=== PATIENT | male | born 1965 | race Caucasian/White ===

== ENCOUNTER 2020-03-11 08:18 | Outpatient (REF) | payer OTHER, SELFPAY | END 2020-03-11 08:19 | disposition home or self-care (01) | LOC: HO.LAB 08:18 | PROVIDERS: Visit Provider Internal Medicine | DX: Z20.822 Contact with and (suspected) exposure to COVID-19 (principal) | CPT/HCPCS: 36415; C9803; U0003; U0005 ==

== ENCOUNTER 2022-04-16 06:48 | Day surgery (SDC) | payer OTHER, SELFPAY ==
[2022-04-13 11:55] VITALS: BMI 24.3
--- NOTE | 2022-04-15 13:09 | HO.ANESPROP2 ---
Documented by User: Paula Rosenthal NP 04/15/22 13:09 HPI - Anesthesia Eval Consult details Narrative: 57yo M for Colonoscopy PMFSH Active Problems Active Problems: All Active Problems (Updated 11/03/21 @ 08:37 by Evi Olivo MD) Annual physical exam (Acute) Colonoscopy refused (Acute) Positive colorectal cancer screening using Cologuard test (Acute) Screening for colon cancer (Acute) Marijuana smoker (Acute) Obstructive sleep apnea (Acute) Genital herpes (Acute) Erectile dysfunction (Acute) GERD without esophagitis (Acute) Pure hypercholesterolemia (Acute) Past Medical History Medical History Erectile dysfunction Genital herpes GERD without esophagitis Marijuana smoker Obstructive sleep apnea Pure hypercholesterolemia Family History Family History Other Family history non-contributory Surgical History Surgical History History of esophagogastroduodenoscopy (EGD) Hx of appendectomy Social History Social History Housing: Apartment Alcohol intake: former Patient Tobacco Use Status: Never used Tobacco Second Hand Smoke Exposure: Yes Are you DNR?: No Advance Directives: No Advance Directives Information Provided: Yes Nutrition Risks: No Nutritional Risk service: No Current occupational status: employed Cognitive needs: No Hearing needs: No Vision needs: Yes Meds Allergies Allergy/AdvReac Type Severity Reaction Status Date / Time Sulfa (Sulfonamide Allergy Unknown RASH Verified 11/03/21 07:58 Antibiotics) [SULFA (SULFONAMIDE ANTIBIOTICS)] Exam Exam Date and Time: April 15, 2022 1309 Height,Weight and Vital Signs: Height 5 ft 10 in Weight 77.111 kg Assessment and Plan Assessment Anesthesia Assessment: Chart Reviewed Documented by User: Patricia Fraser MD 04/16/22 07:18 PMFSH Past Medical History Medical History Erectile dysfunction Genital herpes GERD without esophagitis Marijuana smoker Obstructive sleep apnea Pure hypercholesterolemia Functional capacity: independent ambulation Family History Family History Other Family history non-contributory Surgical History Surgical History History of esophagogastroduodenoscopy (EGD) Hx of appendectomy History of Problems with Anesthesia: No Social History Social History Housing: Apartment Alcohol intake: former Patient Tobacco Use Status: Never used Tobacco Second Hand Smoke Exposure: Yes Are you DNR?: No Advance Directives: No Advance Directives Information Provided: Yes Nutrition Risks: No Nutritional Risk service: No Current occupational status: employed Cognitive needs: No Hearing needs: No Vision needs: Yes Meds Allergies Allergy/AdvReac Type Severity Reaction Status Date / Time Sulfa (Sulfonamide Allergy Unknown RASH Verified 11/03/21 07:58 Antibiotics) [SULFA (SULFONAMIDE ANTIBIOTICS)] Exam Airway Mallampati Class: III TM Dist: >3cm Neck ROM: Full Heart: RRR Lungs: CTA Assessment and Plan Final Anesthetic Review History of Problems with Anesthesia: No NPO: Yes ASA Class: II Final Preanesthetic Review: No Changes in Pt Med Stat, Meds/Allgs Chart Reviewed, Consent Obtained/Reviewed and Anes Risks/Benef Reviewed Patient Risk: Low Procedure Risk: Low Anesthetic Plan Anesthetic Plan: MAC: Disposition: Standard PACU
[2022-04-16 06:59] VITALS: BP 139/83; PULSE 77; RESP 18; TEMP 36.1; O2SAT 97
--- NOTE | 2022-04-16 07:19 | ECG_ITS ---
Test Reason : ?rhythm Blood Pressure : / mmHG Vent. Rate : 073 BPM Atrial Rate : 073 BPM P-R Int : 146 ms QRS Dur : 134 ms QT Int : 434 ms P-R-T Axes : 066 -68 023 degrees QTc Int : 478 ms Normal sinus rhythm Left axis deviation Right bundle branch block Abnormal ECG No previous ECGs available Referred By: Patricia Fraser Electronically Signed By:MILES DUFF
[2022-04-16] MEDS: Lactated Ringers 1,000 ML 100 ML IVCONT (07:24)
--- NOTE | 2022-04-16 07:38 | MHC.SHP ---
Pre-Procedural Eval Section A Date of Service: 04/16/22 Section B Chief Complaint: Positive cologuard Details of Present Illness: PMH: Erectile dysfunction Genital herpes GERD without esophagitis Marijuana smoker Obstructive sleep apnea Pure hypercholesterolemia Relevant Family History (Specify if Yes): No Present Medications: see Short Stay Collaborative assessment History of Previous Operations: No relevant previous surgery Allergies: Allergies Allergy/AdvReac Type Severity Reaction Status Date / Time Sulfa (Sulfonamide Allergy Unknown RASH Verified 11/03/21 07:58 Antibiotics) [SULFA (SULFONAMIDE ANTIBIOTICS)] Review of Systems Review of Systems Comment: Ten point ROS negative Exam Exam Comment: Gen appear: No acute distress HEENT: no icterus Chest: No overt resp distress Abd: soft, nontender, nondistended Psych: Stable affect, answering questions appropriately Neuro: A/Ox3 noted to move all extremities spontaneously Ext: no peripheral edema Plan Diagnosis/Plan: Unchanged I have reviewed the history and physical and performed a pertinent physical examination on my patient. No changes have occurred unless specified. Time Spent With Patient Time: Total time managing care of this patient today ____ minutes.
--- NOTE | 2022-04-16 08:10 | P.OP_ITS ---
Operative Note Operative Note Date of Service: 04/16/22 Narrative: Procedure: Colonoscopy Indication: + cologuard test Endoscopist: Evi Olivo MD Anesthesia Provider: Dr Patricia Castro Anesthesia type: MAC Instrument: Olympus [id number]-[id number] Consent: Indication, risks vs benefits, and alternatives were discussed with the patient who gave written informed consent to proceed. EKG, pulse, pulse oximetry and blood pressure were monitored throughout the procedure. Please see anesthesia flowsheet. Procedure: The patient was brought to the procedure room and placed in the left lateral decubitus position. IV medications were administered by the anesthesia provider in attendance. A digital rectal exam was performed which was normal. A distal attachment cap was affixed to the tip of the scope and the colonoscope was then inserted through the anus and advanced through the colon to the cecum at 75 cm,and terminal ileum. Appendiceal orifice and ileocecal valve were identified. Mucosa was carefully examined under high definition white light as the instrument was slowly withdrawn in a retrograde panoramic fashion. Retroflexion was performed in ascending colon and rectum. The procedure was not difficult. There were no immediate obvious complications. The quality of the prep was BBPS: 2+3+3 = adequate Withdrawal time 15 minutes. Limitations: No limitations. Findings: Mucosa: Normal to cecum and terminal ileum. Protruding lesions: * 1 sessile polyp of size 4 mm in sigmoid colon. Cold snare polypectomy was performed. The polyp was completely removed and retrieved. * 1pedunculated polyp of size 20 mm in rectum. Hot snare polypectomy was performed. The polyp was completely removed and retrieved. * Medium internal hemorrhoids without stigmata of recent bleeding. Excavated lesions: * Small scattered diverticulosis of sigmoid colon. Impression: 1. Normal colon and terminal ileum mucosa 2. Total of 2 polyps removed from sigmoid colon and rectum. 3. Diverticulosis 3. Internal hemorrhoids Recommendations: - Follow path results. - Repeat colonoscopy in 3 years if the rectal polyp is an adenoma. - Increase fiber intake
[2022-04-16 08:40] VITALS: BP 116/64; PULSE 67; RESP 16; TEMP 36.3; O2SAT 95
[2022-04-16 08:55] VITALS: BP 130/88; PULSE 70; RESP 16; TEMP 36.4; O2SAT 96
--- NOTE | 2022-04-16 13:30 | HO.POSTANES ---
Post Anesthesia Evaluation Post Anesthesia Evaluation Vital Signs: Vital Signs Temp Pulse Resp BP Pulse Ox O2 Del Method 04/16/22 08:55 97.5 F 70 16 130/88 96 Room Air 04/16/22 08:40 97.4 F 67 16 116/64 95 Room Air 04/16/22 06:59 96.9 F 77 18 139/83 97 Room Air Anesthesia: Monitored Mental Status: Awake Pain Control: Satisfactory Nausea/Vomiting: None Hydration: Adequate Anesthesia-Related Issues: No Anes. Related Issues
== END 2022-04-16 09:29 | disposition home or self-care (01) ==
PROVIDERS: PCP Internal Medicine; Visit Provider Internal Medicine
PROC: 0DJD8ZZ Inspection of Lower Intestinal Tract, Via Natural or Artificial Opening Endoscopic (ICD-10-PCS; CPT 45378; principal; 2022-04-16 08:10)
DX: R19.5 Other fecal abnormalities (principal); D12.5 Benign neoplasm of sigmoid colon; D12.8 Benign neoplasm of rectum; K57.30 Diverticulosis of large intestine without perforation or abscess without bleeding; K64.8 Other hemorrhoids; K21.9 Gastro-esophageal reflux disease without esophagitis; E78.00 Pure hypercholesterolemia, unspecified; G47.33 Obstructive sleep apnea (adult) (pediatric); N52.9 Male erectile dysfunction, unspecified; A60.00 Herpesviral infection of urogenital system, unspecified; F12.90 Cannabis use, unspecified, uncomplicated; Z79.899 Other long term (current) drug therapy; Z88.2 Allergy status to sulfonamides
CPT/HCPCS: 45385; 88305; 93005

== ENCOUNTER 2024-08-23 09:03 | Outpatient (AMB) | payer OTHER, SELFPAY ==
[2024-08-23 09:05] VITALS: BP 146/100; PULSE 77; O2SAT 96; BMI 24.6
--- NOTE | 2024-08-23 09:05 | A.OFFPC_ITS ---
Vital Signs 08/23/24 09:05 08/23/24 09:51 Height 5 ft 10 in Weight 171 lb 8 oz BMI 24.6 BP 146/100 H 158/100 H Blood Pressure Location Lt brachial Lt brachial Position Sitting Sitting Pulse 77 Pulse Source Pulse Oximeter Pulse Oximetry (%) 96 Oxygen Delivery Method Room Air Intake Visit Reasons: OVERDUE ANNUAL PE Butcher Required: No Accompanied by: Self / Same As Patient Allergies Sulfa (Sulfonamide Antibiotics) (SULFA (SULFONAMIDE ANTIBIOTICS)) Allergy (Unknown, Verified 08/23/24 09:46) RASH Medication List - Last Reconciled 08/23/24 by Sidney Tse MD omeprazole magnesium (Prilosec OTC) 20 mg PO DAILY Tobacco use date assessed: 08/23/24 Dental Screening Dental Screen Date: 08/23/24 Did you have a dental visit in the last 12 months?: No Did you have a dental problem in the last 6 months where you did not have access to dental care?: No Was dental information given to patient?: Patient has dentist HPI OVERDUE ANNUAL PE HPI Details Patient comes in today for his annual physical examination - he has not been back in over 3 years (was last seen here in July 2021) Patient states that he feels okay He denies any headaches or dizziness Denies any chest pains, no SOB No nausea/vomiting, no abdominal pain No change in bowel habits noted He denies any acute urinary symptoms He was taking Pantoprazole in the past but as he has not been back in a while and has not had his Rx refilled, has just been taking OTC Prilosec, which he feels works just as well States that he needs his Valtrex Rx refilled - takes it as needed for flare ups of his herpes He had his colonoscopy last done in April 2022 - (+) tubular adenoma and he was recommended for repeat colonoscopy in 3 years (April 2025) PFSH Medical History Marijuana smoker Obstructive sleep apnea Genital herpes Erectile dysfunction GERD without esophagitis Pure hypercholesterolemia Surgical History Hx of appendectomy History of esophagogastroduodenoscopy (EGD) Family History Other Family history non-contributory Social History Housing: Apartment Alcohol intake: former Patient Tobacco Use Status: Never used Tobacco e-Cigarette/Vaping Use: Never Used Second Hand Smoke Exposure: Yes service: No Current occupational status: employed Cognitive needs: No Hearing needs: No Vision needs: Yes Questionnaire PHQ-9 Over the last 2 weeks, how often have you been bothered by any of the following problems? 1. Little interest or pleasure in doing things: not at all 2. Feeling down, depressed, or hopeless: not at all 3. Trouble falling or staying asleep, or sleeping too much: not at all 4. Feeling tired or having little energy: not at all 5. Poor appetite or overeating: not at all 6. Feeling bad about yourself - or that you are a failure or have let yourself or your family down: not at all 7. Trouble concentrating on things, such as reading the newspaper or watching television: not at all 8. Moving or speaking so slowly that other people could have noticed. Or the opposite - being so fidgety or restless that you have been moving around a lot more than usual: not at all 9. Thoughts that you would be better off or of hurting yourself in some way: not at all Total score: 0 Depression Screening Interpretation: Negative Depression Screening Done: Yes 17886 - PHQ-9 Billing: Yes Source: Developed by Drs. Kg Wheeler, Loree Martell, Laci Sampson and colleagues, with an educational aga from [employer]. Thrive Questionnaire Date Thrive assessed: 08/23/24 I am a: Patient What is your living situation today?: I have a steady place to live Within the past 12 months, did the food you bought not last and you didn't have the money to get more?: Never true Within the past 12 months, did you worry whether your food would run out before you got money to buy more?: Never true Do you have trouble paying for medicines?: No Do you have trouble getting transportation to medical appointments?: No Do you have trouble paying your heating and electricity bill?: No Do you have trouble taking care of your child, family member or friend?: No Do you have trouble with day-to-day activities such as bathing, preparing meals, shopping, managing finances, etc.?: No Are you currently unemployed and looking for a job?: No Are you interested in more education?: No Please select the resources that you would like help with: None Currently or been in a relationship where the following occur: No concerns reported THRIVE Score: 0 AUDIT C Alcohol Use Questionnaire (AUDIT-C) 1. How often do you have a drink containing alcohol?: Never 3. How often do you have six or more drinks on one occasion?: Never Total Score: 0 Score Reviewed/Action Taken: Yes MICHELLE-7 AMB Questionnaire MICHELLE-7 Date MICHELLE - 7 assessed: 08/23/24 Feeling nervous, anxious, or on edge: 0 = Not at all Not being able to stop or control worryin = Not at all Worrying too much about different things: 0 = Not at all Trouble relaxin = Not at all Being so restless that it is hard to sit still: 0 = Not at all Becoming easily annoyed or irritable: 0 = Not at all Feeling afraid as if something awful might happen: 0 = Not at all Total MICHELLE-7 score (0-4 normal; 5-9 mild; 10-14 moderate; 15-21 severe): 0 Source: Developed by Drs. Kg Wheeler, Loree Martell, Laci Sampson and colleagues, with an educational aga from [employer]. Review of Systems Const Denies chills, Denies fatigue, Denies fever(s), Denies headache(s), Denies malaise and Denies weakness Eyes Denies blurry vision, Denies change in vision, Denies irritation and Denies itchy eyes ENT Denies dysphagia, Denies dizziness, Denies otalgia, Denies headache(s), Denies nasal congestion, Denies neck pain, Denies odynophagia and Denies sore throat Card Denies chest pain, Denies rapid heart rate, Denies irregular heart rhythm, Denies palpitations and Denies dyspnea Resp Denies chest congestion, Denies cough, Denies dyspnea and Denies wheezing GI Denies abdominal pain, Denies bloating, Denies constipation, Denies dysphagia, Denies heartburn, Denies diarrhea, Denies nausea, Denies odynophagia and Denies vomiting Denies hematuria, Denies difficulty urinating, Denies dysuria, Denies urinary frequency and Denies urinary urgency Musc Denies back pain, Denies arthralgias, Denies joint swelling, Denies muscle weakness and Denies neck pain Skin/Breast Denies change in pigmentation, Denies lesions, Denies rash and Denies unusual bruising Neuro Denies dizziness, Denies headache(s), Denies paresthesias and Denies weakness Endo Denies fatigue and Denies palpitations Aller/Immun Denies itchy eyes and Denies wheezing Physical exam (Primary Care) Vital Signs: Last Vital Signs Pulse 77 08/23/24 09:05 BP 146/100 H 08/23/24 09:05 Pulse Ox 96 08/23/24 09:05 Oxygen Delivery Method Room Air 08/23/24 09:05 BMI result Body Mass Index 24.6 Tobacco/Smoking Status: Tobacco use Status Tobacco use date assessed 08/23/24 08/23/24 09:10 Patient Tobacco Use Status Never used Tobacco 08/23/24 09:10 e-Cigarette/Vaping Use Never Used 08/23/24 09:10 PHQ-9: PHQ-9 Score PHQ-9: Total score 0 08/23/24 09:10 Depression Screening Interpretation: Negative Thrive Assessment: Date of Thrive Assessment Date Thrive assessed 08/23/24 08/23/24 09:10 Currently or been in a relationship where the following occur: No concerns reported Const General: no acute distress, alert and awake Orientation/consciousness: patient oriented x3 HENMT Head: Yes normocephalic and Yes atraumatic Ears: external ears normal, TM's normal bilaterally and EAC's normal General nose exam: No nasal discharge present Face and sinus: Yes normal facial exam and Yes sinuses nontender Teeth and gingiva: dentition normal Throat: Yes posterior oropharynx normal and Yes tonsils normal (no TP congestion) Eyes Eyelids: Yes eyelids normal Conjunctivae: conjunctivae normal Pupils: Equal, round and reactive pupils present EOM: EOMs intact bilaterally Neck Neck: Yes no lymphadenopathy and Yes supple Thyroid: Thyroid normal Resp Auscultation: clear to auscultation bilaterally, no rales and no wheezes Cardio Rate: regular rate Rhythm: regular rhythm Heart sounds: no murmurs GI Palpation (GI): Soft to palpation, nontender and No hepatosplenomegaly present Auscultation: normal bowel sounds General: Yes no CVA tenderness Back/Spine/Pelvis Back: no CVA tenderness Thoracic/Lumbar Spine: thoracic and lumbar spine normal to inspection Skin Lesions: no lesions Rashes: no rashes Neuro General: patient oriented x3, moves all extremities, no focal motor deficits and CN's II-XI intact bilaterally Cranial nerves: Yes Equal, round and reactive pupils present Cognition (Neuro): normal cognition Gait exam (Neuro): Normal gait present Extrem General: Yes no clubbing, cyanosis or edema Coding Level of Care Code Est Pt Prev Care 40-64y(52079) Diagnoses Annual physical exam Z00.00 Elevated blood pressure reading in office without diagnosis of hypertension R03.0 Pure hypercholesterolemia E78.00 GERD without esophagitis K21.9 Obstructive sleep apnea G47.33 Erectile dysfunction, unspecified erectile dysfunction type N52.9 Erectile dysfunction type: unspecified Genital herpes simplex, unspecified site A60.00 Herpes simplex infection site: unspecified Marijuana smoker F12.90 Additional Codes PHQ-9 - 81236 - PHQ-9 Billing: Yes ([id number]) Assessment & Plan Assessment & Plan (1) Annual physical exam: Code(s): Z00.00 - Encounter for general adult medical examination without abnormal findings Category: Medical Plan: Check labs He last had his colonoscopy done back in April 2022 - (+) tubular adenoma and he was recommended for repeat colonoscopy in 3 years (April 2025) (2) Elevated blood pressure reading in office without diagnosis of hypertension: Code(s): R03.0 - Elevated blood-pressure reading, without diagnosis of hypertension Category: Medical Plan: His blood pressure is elevated today, even when it was rechecked a few minutes later Patient states that he gets very upset just thinking about the current political administration and its policies and what it is doing to his country and states that he probably should just not even watch the news or read the papers so as not to get aggravated Discussed low sodium diet Will have him follow up with our nurse navigators in a few weeks to have his blood pressure rechecked (3) Pure hypercholesterolemia: Code(s): E78.00 - Pure hypercholesterolemia, unspecified Category: Medical Plan: Reinforced low cholesterol diet Will have patient recheck his fasting lipids JANIE for follow up (4) GERD without esophagitis: Code(s): K21.9 - Gastro-esophageal reflux disease without esophagitis Category: Medical Plan: Dietary restrictions reinforced Continue Omeprazole 20 mg QD - will send in Rx to see if his insurance will cover the Rx as he has just been getting this OTC and [id number] for the past couple of years (5) Obstructive sleep apnea: Code(s): G47.33 - Obstructive sleep apnea (adult) (pediatric) Category: Medical Plan: Continue using his CPAP device when sleeping at night daily (6) Erectile dysfunction: Code(s): N52.9 - Male erectile dysfunction, unspecified Category: Medical Qualifiers: Erectile dysfunction type: unspecified Qualified Code(s): N52.9 - Male erectile dysfunction, unspecified Plan: He was taking Tadalafil 20 mg PRN but has not refilled this Rx in a while now (7) Genital herpes: Code(s): A60.00 - Herpesviral infection of urogenital system, unspecified Category: Medical Qualifiers: Herpes simplex infection site: unspecified Qualified Code(s): A60.00 - Herpesviral infection of urogenital system, unspecified Plan: Continue Valacyclovir 1000 mg QD for chronic suppressive Tx - Rx refilled (8) Marijuana smoker: Code(s): F12.90 - Cannabis use, unspecified, uncomplicated Category: Medical Plan: Patient is again counseled on smoking cessation and reminded of the dangers of driving while impaired Plan Follow up in 4 months Orders: Orders Complete Blood Count Auto Diff Today D64.9 - Anemia, unspecified, Z00.00 - Encounter for general adult medical examination without abnormal findings Comprehensive [place]. Panel Fast Today E78.00 - Pure hypercholesterolemia, unspecified, Z00.00 - Encounter for general adult medical examination without abnormal findings Lipid Panel Today E78.00 - Pure hypercholesterolemia, unspecified, Z00.00 - Encounter for general adult medical examination without abnormal findings TSH reflex Free T4 Today E78.00 - Pure hypercholesterolemia, unspecified, Z00.00 - Encounter for general adult medical examination without abnormal findings Vitamin D 25-OH Total Today E55.9 - Vitamin D deficiency, unspecified, Z00.00 - Encounter for general adult medical examination without abnormal findings Prostate Specific Antigen Today N40.0 - Benign prostatic hyperplasia without lower urinary tract symptoms, Z00.00 - Encounter for general adult medical examination without abnormal findings UA CC w/rflx Micro + Cult Today R30.0 - Dysuria, Z00.00 - Encounter for general adult medical examination without abnormal findings Medications: New omeprazole 20 mg PO DAILY 90 caps 1RF 90 days Refilled valacyclovir 1,000 mg PO DAILY 90 tabs 1RF 90 days A60.00 - Herpesviral infection of urogenital system, unspecified
--- OUTSIDE RECORDS SUMMARY | 2024-08-23 09:18 | XMS_ITS | Patient Health Record ---
Author Organization [facility] Address [address] [place] [address] Care Team Providers Care Bookmaker'S Clerk Name Role Phone Humphrey Lindquist Jr Reason For Referral No Information Plan Of Treatment No Information
[2024-08-23 09:51] VITALS: BP 158/100
== END 2024-08-23 10:01 | disposition home or self-care (01) ==
LOC: HO.HMCH 09:03
PROVIDERS: PCP Internal Medicine; Visit Provider Internal Medicine
DX: Z00.00 Encounter for general adult medical examination without abnormal findings (principal); R03.0 Elevated blood-pressure reading, without diagnosis of hypertension; E78.00 Pure hypercholesterolemia, unspecified; K21.9 Gastro-esophageal reflux disease without esophagitis; G47.33 Obstructive sleep apnea (adult) (pediatric); N52.9 Male erectile dysfunction, unspecified; A60.00 Herpesviral infection of urogenital system, unspecified; F12.90 Cannabis use, unspecified, uncomplicated

== ENCOUNTER → 2024-08-23 09:03 | Outpatient (BNVA) | payer OTHER, SELFPAY | PROVIDERS: PCP Internal Medicine; Visit Provider Internal Medicine | DX: Z00.00 Encounter for general adult medical examination without abnormal findings (principal); R03.0 Elevated blood-pressure reading, without diagnosis of hypertension; E78.00 Pure hypercholesterolemia, unspecified; K21.9 Gastro-esophageal reflux disease without esophagitis; G47.33 Obstructive sleep apnea (adult) (pediatric); N52.9 Male erectile dysfunction, unspecified; A60.00 Herpesviral infection of urogenital system, unspecified; F12.90 Cannabis use, unspecified, uncomplicated; D64.9 Anemia, unspecified; E55.9 Vitamin D deficiency, unspecified; N40.0 Benign prostatic hyperplasia without lower urinary tract symptoms; R30.0 Dysuria | CPT/HCPCS: 96127 ==

== ENCOUNTER 2024-12-20 07:04 | Outpatient (REF) | payer OTHER, SELFPAY ==
--- OUTSIDE RECORDS SUMMARY | 2024-12-20 07:08 | XMS_ITS | Patient Health Record ---
Author Organization [facility] Address [address] [place] [address] Care Team Providers Care Child Specialist Name Role Phone Humphrey Lindquist Jr [phone] Reason For Referral No Information Plan Of Treatment No Information
[2024-12-20 07:22] LABS: MANUAL DIFF FLAG NO
[2024-12-20 08:04] LABS: Hematocrit 49.0 % (42.0-52.0); Hemoglobin 16.7 g/dl (14.0-18.0); Imm Gran Abs Auto 0.02 X10*3/uL (0.00-0.03); Imm Gran Pct Auto 0.4 % (0.0-0.4); Lymphocytes Absolute Auto 1.0 X10*3/uL (1.2-4.9); Mean Corpuscular HGB Conc 34.1 g/dl (31.0-36.0); Mean Corpuscular Hemoglobin 33.1 pg (27.0-33.0); Mean Corpuscular Volume 97.0 fL (80.0-98.0); NRBC Abs Auto 0.000 X10*3/uL (0.0-0.012); NRBC Pct Auto 0.0 /100WBC (0.0-0.2); Platelet Count 180 X10*3/uL (160-400); Red Blood Count 5.05 X10*6/uL (4.60-5.80); White Blood Count 4.9 X10*3/uL (4.8-10.8)
[2024-12-20 08:18] LABS: Appearance Urine Clear; Glucose Urine UA Negative (Negative); PH 8.5 (5.0-9.0); Specific Gravity - Urine 1.020 (1.005-1.025); UMIC TRIGGER UACC YES
[2024-12-20 08:39] LABS: Alanine Aminotransferase 46 U/L (0-40); Albumin Level 4.6 g/dL (3.5-5.0); Alkaline Phosphatase 81 U/L (39-117); Anion Gap 12 (12-20); Aspartate Amino Transferase 34 U/L (5-37); Blood Urea Nitrogen 21 mg/dL (9-16); Calcium 9.3 mg/dL (8.4-10.2); Carbon Dioxide 28 mmol/L (22-29); Chloride 106 mmol/L (96-108); Cholesterol 226 mg/dL (<200); Estimated Glomerular Filt Rate > 60; HDL Cholesterol 45 mg/dL (>40); Potassium 4.4 mmol/L (3.3-5.1); Sodium 142 mmol/L (135-145); Total Protein 7.3 g/dL (6.5-8.0); Triglycerides 213 mg/dL (<150)
[2024-12-20 08:52] LABS: Prostate Specific Antigen 2.01 ng/mL (<0.05-4.0)
== END 2024-12-20 07:05 | disposition home or self-care (01) ==
LOC: HO.LAB 07:04
PROVIDERS: PCP Internal Medicine; Visit Provider Internal Medicine
DX: Z00.00 Encounter for general adult medical examination without abnormal findings (principal); Z12.5 Encounter for screening for malignant neoplasm of prostate; D64.9 Anemia, unspecified; E78.00 Pure hypercholesterolemia, unspecified; E55.9 Vitamin D deficiency, unspecified; N40.0 Benign prostatic hyperplasia without lower urinary tract symptoms; R30.0 Dysuria
CPT/HCPCS: 36415; 80053; 80061; 81001; 82306; 84153; 84443; 85025

== ENCOUNTER 2025-01-02 09:21 | Outpatient (AMB) | payer OTHER, SELFPAY ==
[2025-01-02 09:34] VITALS: BP 142/86; PULSE 79; TEMP 36.3; O2SAT 97; BMI 25.1
--- NOTE | 2025-01-02 09:34 | MHC.PC.OV ---
Vital Signs 01/02/25 09:34 Height 5 ft 10 in Weight 175 lb 2 oz BMI 25.1 BP 142/86 H Blood Pressure Location Lt brachial Position Sitting Pulse 79 Pulse Source Pulse Oximeter Temp 97.3 F Temp Source Temporal Artery Scan Pulse Oximetry (%) 97 Oxygen Delivery Method Room Air Intake Visit Reasons: elevated blood pressure, GERD Allergies Sulfa (Sulfonamide Antibiotics) (SULFA (SULFONAMIDE ANTIBIOTICS)) Allergy (Unknown, Verified 01/02/25 09:46) RASH Medication List - Last Reconciled 01/02/25 by Sidney Tse MD omeprazole 20 mg PO DAILY 90 days valacyclovir 1,000 mg PO DAILY 90 days Tobacco use date assessed: 01/02/25 Dental Screening Dental Screen Date: 01/02/25 Did you have a dental visit in the last 12 months?: No Did you have a dental problem in the last 6 months where you did not have access to dental care?: No Was dental information given to patient?: Patient has dentist HPI elevated blood pressure, GERD HPI Details Patient comes in today for his follow up visit States that he feels okay He denies any headaches or dizziness Denies any chest pains, no SOB No nausea/vomiting, no abdominal pain No change in bowel habits noted Needs both of his Rx refilled today He had his follow up labs done a couple of weeks ago - to discuss his results [facility] Medical History Marijuana smoker Obstructive sleep apnea Genital herpes Erectile dysfunction GERD without esophagitis Pure hypercholesterolemia Surgical History Hx of appendectomy History of esophagogastroduodenoscopy (EGD) Family History Other Family history non-contributory Social History Housing: Apartment Alcohol intake: former Patient Tobacco Use Status: Never used Tobacco e-Cigarette/Vaping Use: Never Used Second Hand Smoke Exposure: Yes service: No Current occupational status: employed Cognitive needs: No Hearing needs: No Vision needs: Yes Questionnaire PHQ-9 Over the last 2 weeks, how often have you been bothered by any of the following problems? 1. Little interest or pleasure in doing things: not at all 2. Feeling down, depressed, or hopeless: not at all 3. Trouble falling or staying asleep, or sleeping too much: not at all 4. Feeling tired or having little energy: not at all 5. Poor appetite or overeating: not at all 6. Feeling bad about yourself - or that you are a failure or have let yourself or your family down: not at all 7. Trouble concentrating on things, such as reading the newspaper or watching television: not at all 8. Moving or speaking so slowly that other people could have noticed. Or the opposite - being so fidgety or restless that you have been moving around a lot more than usual: not at all 9. Thoughts that you would be better off or of hurting yourself in some way: not at all Total score: 0 Depression Screening Interpretation: Negative Depression Screening Done: Yes 51328 - PHQ-9 Billing: Yes Source: Developed by Drs. Kg Wheeler, Loree Martell, Laci Sampson and colleagues, with an educational aga from [employer]. Thrive Questionnaire Date Thrive assessed: 08/23/24 I am a: Patient What is your living situation today?: I have a steady place to live Within the past 12 months, did the food you bought not last and you didn't have the money to get more?: Never true Within the past 12 months, did you worry whether your food would run out before you got money to buy more?: Never true Do you have trouble paying for medicines?: No Do you have trouble getting transportation to medical appointments?: No Do you have trouble paying your heating and electricity bill?: No Do you have trouble taking care of your child, family member or friend?: No Do you have trouble with day-to-day activities such as bathing, preparing meals, shopping, managing finances, etc.?: No Are you currently unemployed and looking for a job?: No Are you interested in more education?: No Please select the resources that you would like help with: None Currently or been in a relationship where the following occur: No concerns reported THRIVE Score: 0 AUDIT C Alcohol Use Questionnaire (AUDIT-C) 1. How often do you have a drink containing alcohol?: Never 3. How often do you have six or more drinks on one occasion?: Never Total Score: 0 Score Reviewed/Action Taken: Yes MICHELLE-7 AMB Questionnaire MICHELLE-7 Date MICHELLE - 7 assessed: 08/23/24 Feeling nervous, anxious, or on edge: 0 = Not at all Not being able to stop or control worryin = Not at all Worrying too much about different things: 0 = Not at all Trouble relaxin = Not at all Being so restless that it is hard to sit still: 0 = Not at all Becoming easily annoyed or irritable: 0 = Not at all Feeling afraid as if something awful might happen: 0 = Not at all Total MICHELLE-7 score (0-4 normal; 5-9 mild; 10-14 moderate; 15-21 severe): 0 Source: Developed by Drs. Kg Wheeler, Loree Martell, Laci Sampson and colleagues, with an educational aga from [employer]. Review of Systems Const Denies chills, Denies fatigue, Denies fever(s) and Denies headache(s) ENT Denies dysphagia, Denies dizziness, Denies otalgia, Denies headache(s), Denies neck pain, Denies odynophagia and Denies sore throat Card Denies chest pain, Denies rapid heart rate, Denies palpitations and Denies dyspnea Resp Denies chest congestion, Denies cough and Denies dyspnea GI Denies abdominal pain, Denies constipation, Denies dysphagia, Denies heartburn, Denies diarrhea, Denies nausea, Denies odynophagia and Denies vomiting Denies difficulty urinating, Denies dysuria and Denies urinary frequency Musc Denies back pain, Denies arthralgias and Denies neck pain Skin/Breast Denies rash Neuro Denies dizziness, Denies headache(s) and Denies paresthesias Endo Denies fatigue and Denies palpitations Physical exam (Primary Care) Vital Signs: Last Vital Signs Temp 97.3 F 01/02/25 09:34 Pulse 79 01/02/25 09:34 BP 142/86 H 01/02/25 09:34 Pulse Ox 97 01/02/25 09:34 Oxygen Delivery Method Room Air 01/02/25 09:34 BMI result Body Mass Index 25.1 Tobacco/Smoking Status: Tobacco use Status Tobacco use date assessed 01/02/25 01/02/25 09:37 Patient Tobacco Use Status Never used Tobacco 01/02/25 09:37 e-Cigarette/Vaping Use Never Used 01/02/25 09:37 PHQ-9: PHQ-9 Score PHQ-9: Total score 0 01/02/25 09:48 Depression Screening Interpretation: Negative Thrive Assessment: Date of Thrive Assessment Date Thrive assessed 08/23/24 01/02/25 09:37 Currently or been in a relationship where the following occur: No concerns reported Const General: no acute distress and alert HENMT Throat: Yes posterior oropharynx normal and Yes tonsils normal (no TP congestion) Neck Neck: Yes supple and No lymphadenopathy Thyroid: Thyroid normal Resp Auscultation: clear to auscultation bilaterally, no rales and no wheezes Cardio Rate: regular rate Rhythm: regular rhythm Heart sounds: no murmurs GI Palpation (GI): Soft to palpation and nontender Auscultation: normal bowel sounds General: Yes no CVA tenderness Back/Spine/Pelvis Back: no CVA tenderness Thoracic/Lumbar Spine: No lumbar spinal tenderness Skin Rashes: no rashes Extrem General: Yes no clubbing, cyanosis or edema Results Reviewed Results Reviewed: Laboratory Tests 12/20/24 12/20/24 07:15 07:21 WBC 4.9 Hgb 16.7 Hct 49.0 Plt Count 180 Sodium 142 Potassium 4.4 Creatinine 0.95 Estimated GFR > 60 Fasting Glucose 92 Calcium 9.3 AST 34 ALT 46 H Triglycerides 213 H Cholesterol 226 H LDL Cholesterol, Calc 139 H HDL Cholesterol 45 Prostate Specific Ag 2.01 25-OH Vitamin D Total 42.6 TSH 1.46 Ur Specific [place] 1.020 Urine Protein Trace Urine Glucose (UA) Negative Urine Blood Negative Urine Nitrite Negative Ur Leukocyte Esterase Trace H Coding Level of Care Code Est Pt Level 4 (54243) Diagnoses Elevated blood pressure reading in office without diagnosis of hypertension R03.0 Pure hypercholesterolemia E78.00 GERD without esophagitis K21.9 Obstructive sleep apnea G47.33 Erectile dysfunction, unspecified erectile dysfunction type N52.9 Erectile dysfunction type: unspecified Genital herpes simplex, unspecified site A60.00 Herpes simplex infection site: unspecified Marijuana smoker F12.90 Additional Codes PHQ-9 - 73599 - PHQ-9 Billing: Yes ([id number]) Assessment & Plan Assessment & Plan (1) Elevated blood pressure reading in office without diagnosis of hypertension: Code(s): R03.0 - Elevated blood-pressure reading, without diagnosis of hypertension Category: Medical Plan: His blood pressure is still elevated today, although it is slightly better compared to his blood pressure from a few months ago His blood pressure was at high normal when it was checked by nurse navigation a few months ago - patient likely has some component of white coat syndrome Reinforced low sodium diet - advised that his systolic blood pressure should ideally be around 120 mm or less to be considered normal Have advised patient to continue monitoring his blood pressure regularly (2) Pure hypercholesterolemia: Code(s): E78.00 - Pure hypercholesterolemia, unspecified Category: Medical Plan: Results of his labs done a couple of weeks ago reviewed and discussed with patient - have advised patient that his cholesterol levels are slightly higher than recommended and have increased from his previous numbers back in 2019 Reinforced low cholesterol diet Will have patient recheck his labs and fasting lipids just before he returns for his annual physical exam in August 2025 for follow up (3) GERD without esophagitis: Code(s): K21.9 - Gastro-esophageal reflux disease without esophagitis Category: Medical Plan: Dietary restrictions reinforced Continue Omeprazole 20 mg QD - Rx refilled (4) Obstructive sleep apnea: Code(s): G47.33 - Obstructive sleep apnea (adult) (pediatric) Category: Medical Plan: Continue using his CPAP device when sleeping at night daily (5) Erectile dysfunction: Code(s): N52.9 - Male erectile dysfunction, unspecified Category: Medical Qualifiers: Erectile dysfunction type: unspecified Qualified Code(s): N52.9 - Male erectile dysfunction, unspecified Plan: He was taking Tadalafil 20 mg PRN but has not refilled this Rx in a while now (6) Genital herpes: Code(s): A60.00 - Herpesviral infection of urogenital system, unspecified Category: Medical Qualifiers: Herpes simplex infection site: unspecified Qualified Code(s): A60.00 - Herpesviral infection of urogenital system, unspecified Plan: Continue Valacyclovir 1000 mg QD for chronic suppressive Tx - Rx refilled (7) Marijuana smoker: Code(s): F12.90 - Cannabis use, unspecified, uncomplicated Category: Medical Plan: Patient is again counseled on smoking cessation and reminded of the dangers of driving while impaired Plan He also has not yet had his repeat screening colonoscopy done yet - thinks that GI was trying to reach him recently but he has not yet called them back and states that he will try to reach out to them JANIE to get this scheduled and done To return as scheduled in August 2025 for his next annual physical examination Orders: Orders Complete Blood Count Auto Diff 08/18/25 D64.9 - Anemia, unspecified, Z00.00 - Encounter for general adult medical examination without abnormal findings Comprehensive [place]. Panel Fast 08/18/25 E78.00 - Pure hypercholesterolemia, unspecified, Z00.00 - Encounter for general adult medical examination without abnormal findings Vitamin D 25-OH Total 08/18/25 E55.9 - Vitamin D deficiency, unspecified, Z00.00 - Encounter for general adult medical examination without abnormal findings Prostate Specific Antigen 08/18/25 N40.0 - Benign prostatic hyperplasia without lower urinary tract symptoms, Z00.00 - Encounter for general adult medical examination without abnormal findings Lipid Panel 08/18/25 E78.00 - Pure hypercholesterolemia, unspecified, Z00.00 - Encounter for general adult medical examination without abnormal findings TSH reflex Free T4 08/18/25 E78.00 - Pure hypercholesterolemia, unspecified, Z00.00 - Encounter for general adult medical examination without abnormal findings UA CC w/rflx Micro + Cult 08/18/25 R30.0 - Dysuria, Z00.00 - Encounter for general adult medical examination without abnormal findings Medications: Refilled valacyclovir 1,000 mg PO DAILY 90 tabs 1RF 90 days A60.00 - Herpesviral infection of urogenital system, unspecified omeprazole 20 mg PO DAILY 90 caps 1RF 90 days
== END 2025-01-02 10:53 | disposition home or self-care (01) ==
LOC: HO.HMCH 09:22
PROVIDERS: PCP Internal Medicine; Visit Provider Internal Medicine
DX: R03.0 Elevated blood-pressure reading, without diagnosis of hypertension (principal); E78.00 Pure hypercholesterolemia, unspecified; K21.9 Gastro-esophageal reflux disease without esophagitis; G47.33 Obstructive sleep apnea (adult) (pediatric); N52.9 Male erectile dysfunction, unspecified; A60.00 Herpesviral infection of urogenital system, unspecified; F12.90 Cannabis use, unspecified, uncomplicated

== ENCOUNTER → 2025-01-02 09:21 | Outpatient (BNVA) | payer OTHER, SELFPAY | PROVIDERS: PCP Internal Medicine; Visit Provider Internal Medicine | DX: R03.0 Elevated blood-pressure reading, without diagnosis of hypertension (principal); K21.9 Gastro-esophageal reflux disease without esophagitis; E78.00 Pure hypercholesterolemia, unspecified; G47.33 Obstructive sleep apnea (adult) (pediatric); N52.9 Male erectile dysfunction, unspecified; A60.00 Herpesviral infection of urogenital system, unspecified; F12.90 Cannabis use, unspecified, uncomplicated | CPT/HCPCS: 96127 ==